=== PATIENT | male | born 1995 | race Two or more races ===

== ENCOUNTER 2020-09-01 08:26 | Emergency (ER) | payer OTHER ==
[~2020-09-01] VITALS: Ht 180.3 cm; Wt 70.3 kg
[~2020-09-01 08:26] MED LIST changes: -Ciprofloxacin 500mg tab ORAL ONE; -DOCUSATE SODIU100 MG ORAL
--- NOTE | 2020-09-01 08:45 | NUR ---
ED Nurse Note: Pt ambulated to ED with c/o one episode of blood in the stool. Pt is AOx3, calm and cooperative to care, pt denies any abdominal pain; VSS, on RA, afebrile on triage.
--- NOTE | 2020-09-01 08:55 | NUR ---
ED Nurse Note: NANCYD performed rectal exam with nurse at pt's bedside.
--- NOTE | 2020-09-01 08:58 | Emergency Room Report ---
History of Present Illness General Chief Complaint: General Complaint Source: Patient Present Illness HPI Disclaimer: Please note that this report is being documented using DRAGON technology. This can lead to erroneous entry secondary to incorrect interpretation by the dictating instrument. HPI: 25-year-old male presents for evaluation of rectal bleeding. He was seen in the emergency department approximately 2 hours ago brought in by EMS for evaluation of zachary wire wounds that were 1 day old. He was discharged antibiotics. He now states he had blood in his stool shortly after leaving. Denies pain with defecation. Does report recent constipation. Does not use anticoagulants. Reports a colorectal surgeon very many years ago but cannot recall what it was for or the exact procedure name. 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 EOMI. Resp: Normal work of breathing Abdomen: Soft, nontender, nondistended. Rectal: No external or internal hemorrhoids palpable. Firm stool in rectal vault. Brown in appearance. Faintly guaiac positive Skin: Intact. No abrasions, laceration or rash over the exposed skin MSK: Normal tone and bulk. Moving all extremities. No obvious deformity. Neuro: Awake and alert. Mentating appropriately Medical Decision Making Diagnostic Impression: Primary Impression: Occult blood positive stool Additional Impressions: Rectal bleed Constipation ER Course 25-year-old male presents for evaluation of painless rectal bleeding. Differential includes not limited to peptic ulcer, diverticular bleed, hemorrho ids among others. No melena or internal/external hemorrhoids appreciated the stool is faintly guaiac positive. Labs returned within normal limits. Does not require emergent transfusion. No evidence of persistent bleeding. There is no melena. Vital signs are stable. Patient is well-appearing and states he has had bleeding from internal hemorrhoids/polyps in the past. We will follow-up with PMD for referral to gastroenterology. Referred to nearby clinics. Discharged with stool softeners for constipation. Instructed to return with new or worsening symptoms. He understands and agrees with the treatment plan. Laboratory Tests Test 09/01/20 09:00 White Blood Count 6.0 K/UL (4.8-10.8) Red Blood Count 5.43 M/UL (4.70-6.10) Hemoglobin 13.1 G/DL (14.2-18.0) L Hematocrit 40.9 % (42.0-52.0) L Mean Corpuscular Volume 75 FL (80-99) L Mean Corpuscular Hemoglobin 24.2 PG (27.0-31.0) L Mean Corpuscular Hemoglobin Concent 32.1 G/DL (32.0-36.0) Red Cell Distribution Width 13.7 % (11.6-14.8) Platelet Count 214 K/UL (150-450) Mean Platelet Volume 7.1 FL (6.5-10.1) Neutrophils (%) (Auto) 52.8 % (45.0-75.0) Lymphocytes (%) (Auto) 33.2 % (20.0-45.0) Monocytes (%) (Auto) 10.5 % (1.0-10.0) H Eosinophils (%) (Auto) 2.6 % (0.0-3.0) Basophils (%) (Auto) 1.0 % (0.0-2.0) Prothrombin Time 10.5 SEC (9.30-11.50) Prothrombin Time INR 0.9 (0.9-1.1) Activated Partial Thromboplast Time 25 SEC (23-33) Sodium Level 141 MMOL/L (136-145) Potassium Level 3.5 MMOL/L (3.5-5.1) Chloride Level 106 MMOL/L (98-107) Carbon Dioxide Level 28 MMOL/L (21-32) Anion Gap 7 mmol/L (5-15) Blood Urea Nitrogen 12 mg/dL (7-18) Creatinine 1.2 MG/DL (0.55-1.30) Estimated Glomerular Filtration Rate > 60 mL/min (>60) Glucose Level 97 MG/DL (74-106) Calcium Level 8.1 MG/DL (8.5-10.1) L Total Bilirubin 0.3 MG/DL (0.2-1.0) Aspartate Amino Transferase (AST) 41 U/L (15-37) H Alanine Aminotransferase (ALT) 35 U/L (12-78) Alkaline Phosphatase 111 U/L (46-116) Total Protein 7.0 G/DL (6.4-8.2) Albumin 3.5 G/DL (3.4-5.0) Globulin 3.5 g/dL Albumin/Globulin Ratio 1.0 (1.0-2.7) Lipase 158 U/L (73-393) Last Vital Signs Date Time Temp Pulse Resp B/P (MAP) Pulse Ox O2 Delivery O2 Flow Rate FiO2 09/01/20 08:37 97.0 66 20 105/63 (77) 98 Room Air Disposition: HOME, SELF-CARE Condition: Stable Scripts Docusate Sodium* (DOCUSATE SODIUM*) 100 Mg Capsule 100 MG ORAL THREE TIMES A DAY for 10 Days, #30 CAP Prov: Shon Bolivar MD 09/01/20 Shon Bolivar MD Sep 01, 2020 08:58
[2020-09-01 09:09] VITALS: BP 105/63
[2020-09-01 09:34] LABS: EOSINOPHILS % (AUTO) 2.6 % (0.0-3.0); HEMATOCRIT 40.9 % (42.0-52.0); HEMOGLOBIN 13.1 G/DL (14.2-18.0); LYMPHOCYTES % (AUTO) 33.2 % (20.0-45.0); MEAN CORPUSCULAR VOLUME 75 FL (80-99); MONOCYTES % (AUTO) 10.5 % (1.0-10.0); NEUTROPHILS % (AUTO) 52.8 % (45.0-75.0); PLATELET COUNT 214 K/UL (150-450); RED BLOOD COUNT 5.43 M/UL (4.70-6.10); RED CELL DISTRIBUTION WIDTH 13.7 % (11.6-14.8)
[2020-09-01 09:39] LABS: ANION GAP 7 mmol/L (5-15); BLOOD UREA NITROGEN 12 mg/dL (7-18); CALCIUM 8.1 MG/DL (8.5-10.1); CARBON DIOXIDE 28 MMOL/L (21-32); CHLORIDE 106 MMOL/L (98-107); CREATININE 1.2 MG/DL (0.55-1.30); POTASSIUM 3.5 MMOL/L (3.5-5.1); SODIUM 141 MMOL/L (136-145)
[2020-09-01] MEDS ORDERED: DOCUSATE SODIU100 MG ORAL (09:42)
[2020-09-01 09:43] LABS: ALANINE AMINOTRANSFERASE 35 U/L (12-78); ALBUMIN 3.5 G/DL (3.4-5.0); ALKALINE PHOSPHATASE 111 U/L (46-116); ASPARTATE AMINO TRANSFERASE 41 U/L (15-37); BILIRUBIN,TOTAL 0.3 MG/DL (0.2-1.0)
[2020-09-01 09:45] LABS: INR 0.9 (0.9-1.1)
[2020-09-01 10:14] VITALS: BP 11/65
--- NOTE | 2020-09-01 10:14 | NUR ---
ER DISCHARGE NOTE: Patient is cleared to be discharged per ERMD, pt is aox4, on room air, with stable vital signs. pt was given dc and prescription instructions, pt was able to verbalize understanding, pt id band and iv site removed without complications. pt is able to ambulate with steady gait. pt took all belongings.
== END 2020-09-01 10:14 | disposition home or self-care (01) ==
LOC: EMR 08:40
DX: K62.5 Hemorrhage of anus and rectum (principal); K59.00 Constipation, unspecified; K92.1 Melena
CPT/HCPCS: 36415; 80053; 83690; 85025; 85610; 85730; Z7502; 99283

== ENCOUNTER → 2020-09-01 | Emergency (ER) | payer OTHER ==
[~2020-09-01] VITALS: Ht 180.3 cm; Wt 70.3 kg
[~2020-09-01] MED LIST: CIPROFLOXACIN500 M2 ORAL; Ciprofloxacin 500mg tab ORAL ONE; DOCUSATE SODIU100 MG ORAL
--- NOTE | 2020-09-01 05:50 | NUR ---
ED Nurse Note: Patient brought in by ambulance ROBERT RA 63 [address] with c/o wound at inner thigh and foot. Patient stated he fell and stepped on a barbed wire. Patients feet is covered with purple dye that patient bought otc as "wound cleaner signs". Site is not swelling, no drainage/bleeding noted. Patient denies fever and chills, no LOC or head trauma, no N&V.
--- NOTE | 2020-09-01 06:00 | NUR ---
ED Nurse Note: ERMD at bedside
--- NOTE | 2020-09-01 06:05 | Emergency Room Report ---
History of Present Illness General Chief Complaint: Multiple Trauma/Fall Source: Patient Present Illness HPI Disclaimer: Please note that this report is being documented using DRAGON technology. This can lead to erroneous entry secondary to incorrect interpretation by the dictating instrument. HPI: 25-year-old male presents for wound evaluation. Patient states he was tangled and stepped on barbed wire fencing yesterday causing a puncture wound through his right foot, no abrasion over the top of his right foot as well as a scrape over the medial left thigh. This occurred yesterday. Tetanus updated 2 days ago. States he cleaned the wound and applied some sort of antiseptic ointment. Came in for evaluation this morning. Denies further bleeding, redness, swelling, abscess, purulence or skin breakdown. 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 EOMI. Resp: Normal work of breathing Skin: Puncture wound over the right heel. Superficial abrasion over the MTPJ first digit right foot. Puncture wound medial aspect left thigh. No fluctuance, no edema. No skin breakdown otherwise MSK: Normal tone and bulk. Moving all extremities. No obvious deformity. Full range of motion lower extremities. Neuro: Awake and alert. Mentating appropriately Medical Decision Making Diagnostic Impression: Primary Impression: Puncture wound of foot Additional Impression: Abrasion ER Course Is a 25-year-old male presenting for evaluation of multiple wounds secondary to zachary wire. It does appear that he stepped on bipolar fencing which he states went through the shoe. Will cover for Pseudomonas. Wounds were cleaned in the emergency department. Started on ciprofloxacin. Instructed to return to the ED with new or worsening symptoms. He understands and agrees with this treatment plan. Last Vital Signs Date Time Temp Pulse Resp B/P (MAP) Pulse Ox O2 Delivery O2 Flow Rate FiO2 09/01/20 05:46 98.1 87 18 134/71 (92) 98 Room Air Disposition: HOME, SELF-CARE Condition: Stable Scripts Ciprofloxacin Hcl* (CIPROFLOXACIN HCL*) 500 Mg Tablet 500 MG ORAL Q12H, #14 TAB 0 Refills Prov: Shon Bolivar MD 09/01/20 Shon Bolivar MD Sep 01, 2020 06:05
--- NOTE | 2020-09-01 06:10 | NUR ---
ED Nurse Note: Wound cleaned and washed with soap and water
--- NOTE | 2020-09-01 06:21 | NUR ---
ER DISCHARGE NOTE: Patient is cleared to be discharged per ERMD, pt is aox4, on room air, with stable vital signs. pt was given dc and prescription instructions, pt was able to verbalize understanding, pt id band removed. pt is able to ambulate with steady gait. pt took all belongings.
[2020-09-01 06:22] VITALS: BP 134/71
== END | disposition home or self-care (01) ==
LOC: EDBD 05:47 → EMR 06:30
DX: S91.331A Puncture wound without foreign body, right foot, initial encounter (principal); S90.411A Abrasion, right great toe, initial encounter; W22.8XXA Striking against or struck by other objects, initial encounter; Y92.9 Unspecified place or not applicable
CPT/HCPCS: 99282